=== PATIENT | female | born 1965 | race Caucasian/White ===

== ENCOUNTER → 2017-02-15 | Outpatient (CLI) | payer BC ==
[~2017-02-15] MED LIST: ASCA500 PO; ASPCH81 PO; TMXUNK
[2017-02-15 14:30] LABS: ALT/SGPT 26 U/L (12-78); BLOOD UREA NITROGEN 16 mg/dl (7-18); CALCIUM 8.8 mg/dl (8.5-10.1); CARBON DIOXIDE 29 mmol/L (21-32); CHLORIDE 106 mmol/L (98-107); CHOLESTEROL 259 mg/dl (0-200); CREATININE 0.86 mg/dl (0.60-1.20); GLUCOSE 90 mg/dl (70-99); POTASSIUM 4.5 mmol/L (3.5-5.1); SODIUM 142 mmol/L (136-145); TRIGLYCERIDES 190 mg/dl (0-150); VERY LOW DENSITY LIPOPROT CALC 38 mg/dl
[2017-02-15 14:32] LABS: BASO % 0.2 %; BASO ABS # 0.01 K/uL (0-0.2); COMPLETE YES; EOS % 1.9 %; HEMATOCRIT 40.4 % (37-47); IG% 0.2 %; LYMPH ABS # 1.47 K/uL (1.2-3.4); MEAN CELL VOLUME 87.4 fL (80-100); MEAN CORPUSCULAR HEMOGLOBIN 29.7 pg (25-34); MEAN CORPUSCULAR HGB CONC 33.9 g/dl (32-36); MEAN PLATELET VOLUME 11.4 fL (7.4-10.4); MONO % 8.6 %; NEUT % 61.1 %; PLATELET COUNT 212 K/uL (130-400); RED BLOOD COUNT 4.62 M/uL (4.2-5.4); WHITE BLOOD COUNT 5.25 K/uL (4.8-10.8)
[2017-02-15 14:38] LABS: ALB/GLOB RATIO 1.1 (0.9-2); ALKALINE PHOSPHATASE 85 U/L (45-117); AST/SGOT 14 U/L (15-37); CHOLESTEROL/HDL RATIO 4.3; HDL CHOLESTEROL 60 mg/dl; LDL CHOLESTEROL CALCULATED 161 mg/dl
--- NOTE | 2017-02-25 14:32 | CODING QUERY MEDICAL NECESSITY ---
SUPPORTING DIAGNOSIS NEEDED A supporting diagnosis is required for the test/procedure performed on this patient in order for us to be reimbursed by the patient's insurance. Please provide a supporting diagnosis for the following test/procedure listed below next to the test name along with your signature. *If there is no additional diagnosis for this patient that would support the following test/procedure please document that below next to the test/procedure. Test(s)/Procedure(s) that require a supporting diagnosis: * VITAMIN D, 25-HYDROXY DIAGNOSIS: Provider Signature: Date: Thank you Keila Franks [facility] [employer] Once completed, please kindly fax back to [phone] For questions please call [phone]
== END | disposition home or self-care (01) ==
LOC: C.LABSPEC 13:54
PROVIDERS: ATTEND Family Medicine
DX: R53.83 Other fatigue (principal); E04.1 Nontoxic single thyroid nodule; Z13.1 Encounter for screening for diabetes mellitus; Z13.220 Encounter for screening for lipoid disorders

== ENCOUNTER → 2017-02-15 | Outpatient (CLI) | payer BC | END | disposition home or self-care (01) | LOC: C.PAPS 15:10 | PROVIDERS: ATTEND Family Medicine | DX: Z01.419 Encounter for gynecological examination (general) (routine) without abnormal findings (principal) ==

== ENCOUNTER → 2017-02-16 | Outpatient (CLI) | payer BC ==
--- NOTE | 2017-02-16 15:15 | DIAGNOSTIC IMAGING REPORT ---
SOFT TISS HEAD/NECK-THYROID CLINICAL HISTORY: 51 years-old Female presenting with NONTOXIC SIGLE THYROID NODULE. TECHNIQUE: Real-time grayscale and color and spectral Doppler ultrasound imaging of the thyroid and base of the neck was performed. COMPARISON: None. FINDINGS: Right lobe: Normal echogenicity and echotexture. The right lobe of the thyroid measures 5.8 x 1.8 x 1.7 cm. No nodules. No parenchymal hyperemia. Left lobe: Normal echogenicity and echotexture. The left lobe of the thyroid measures 5.1 x 1.6 x 1.7 cm. No nodules. No parenchymal hyperemia. Isthmus: The isthmus measures 4 mm in thickness. No nodules. IMPRESSION: Normal thyroid ultrasound. Electronically signed by: Rajendra Moulton M.D. 02/16/2017 3:14 PM Dictated Date/Time: 02/16/2017 3:13 PM
== END | disposition home or self-care (01) ==
LOC: C.ULTRBC 14:50
PROVIDERS: ATTEND Family Medicine
DX: E04.1 Nontoxic single thyroid nodule (principal)

== ENCOUNTER → 2017-06-03 | Day surgery (SDC) | payer BC ==
[2017-05-12 07:49] VITALS: Ht 168.9 cm; Wt 90.9 kg
--- NOTE | 2017-05-31 12:02 | HISTORY & PHYSICAL EXAMINATION ---
DATE OF ADMISSION: 06/03/2017 CHIEF COMPLAINT: Postmenopausal bleeding, abnormal transvaginal ultrasound on tamoxifen. HISTORY OF PRESENT ILLNESS: The patient is a 51-year-old 1, para 1. 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 She has had about two periods in the last 4 months. Transvaginal ultrasound on 03/23/2017 revealed a small fibroid and a thickened endometrium at 0.4 cm, presently being scheduled for an outpatient D&C. PAST MEDICAL HISTORY: She has had a boy 15 years old in good health. She had no known drug allergies. PAST SURGICAL HISTORY: She has had eye surgery as a child and she has had several lumpectomies with diagnosis of breast cancer. SOCIAL HISTORY: No smoking. No alcohol intake. Works outside home with a [employer]. FAMILY HISTORY: Mom at age 52 of colon cancer. Father is 86, has diabetes, high blood pressure, is in fairly good health. She has a brother at age 58. He had a tumor removed from his jaw and had to do a reconstructive surgery and he has elevated blood pressure. REVIEW OF SYSTEMS: HEAD: No symptoms of frequent or severe headaches. EYES: No symptoms of blurred vision or double vision. EARS: No symptoms of frequent ear infections or difficulty hearing. NOSE: No symptoms of frequent nosebleeds or difficulty breathing through her nose. THROAT: No symptoms of frequent or severe sore throats, difficulty swallowing. RESPIRATORY SYSTEM: No history of asthma, chest pain, or shortness of breath. PHYSICAL EXAMINATION: GENERAL: A well-developed, well-nourished 51-year-old white female, alert, oriented x3 and cooperative in no acute distress, appears stated age. EYES: Conjunctivae are pink, sclerae white, no evidence of jaundice. EARS: Had normal light reflex bilaterally. HEART: Regular rhythm. S1 and S2 are normal. BREASTS: Normal. ABDOMEN: Soft and nontender. LUNGS: Clear. PELVIC: Revealed a normal-appearing cervix. Uterus was top normal size. There were no adnexal masses appreciated. MUSCULOSKELETAL: Revealed no calf tenderness. IMPRESSIONS OF THIS CASE: Bilateral breast cancer on tamoxifen and postmenopausal bleeding, abnormal transvaginal ultrasound.
[2017-05-31 13:05] LABS: BASO % 0.3 %; BASO ABS # 0.02 K/uL (0-0.2); COMPLETE YES; EOS % 1.5 %; HEMATOCRIT 42.1 % (37-47); LYMPH % 32.6 %; MEAN CELL VOLUME 88.8 fL (80-100); MEAN CORPUSCULAR HGB CONC 33.7 g/dl (32-36); MEAN PLATELET VOLUME 11.4 fL (7.4-10.4); MONO % 6.4 %; NEUT % 59.2 %; PLATELET COUNT 221 K/uL (130-400); RED BLOOD COUNT 4.74 M/uL (4.2-5.4); WHITE BLOOD COUNT 5.82 K/uL (4.8-10.8)
[2017-05-31 13:33] LABS: PREG INTERNAL NEGATIVE QC NEG CLEAR BACKGROUND; PREG INTERNAL POSITIVE QC POS CONTROL LINE
[~2017-06-03] VITALS: Ht 168.9 cm; Wt 90.9 kg
[~2017-06-03] MED LIST changes: -ASCA500 PO; -ASPCH81 PO; +ATROPINE SULFATE 0.1 MG/ML 5ML SYR IV PRN; +DEXAMETHASONE SOD INJ 4 MG/ML VIAL ONE; +ERGO500037 PO; +EpHEDrine SULFATE INJ 50 MG/ML AMP IV PRN; +FENTANYL CITRATE INJ 50 MCG/1 ML 2 ML VIAL IV PRN; +FENTANYL CITRATE INJ 50 MCG/1 ML 2 ML VIAL ONE; +FLUT0.15 NAE; +GLYCOPYRROLATE INJ 0.2 MG/ML VIAL ONE; +HYDROCODONE/ACETAMOPHEN 5/325MG TAB PO PRN; +IBUP-1050 PO; +IBUPROFEN 600 MG TAB PO PRN; +KETOROLAC TROMETHAMINE 30 MG/ML VIAL IV. PRN; +KETOROLAC TROMETHAMINE 30 MG/ML VIAL ONE; +LACTATED RINGER'S 1000ML 1,000 ML IV SCH; +LIDOCAINE HCL 2% 2 ML VIAL (20MG/ML) ONE; +MIDAZOLAM HCL 1 MG/ML 2ML VIAL ONE; +MULT-506 PO; +NEOSTIGMINE METHYLSULFATE 5 MG/5 ML SYR ONE; +ONDANSETRON INJ 2 MG/ML 2 ML VIAL IV PRN; +ONDANSETRON INJ 2 MG/ML 2 ML VIAL ONE; +OXYCODONE/ACETAMINOPHEN 5-325 TAB PO PRN; +PROPOFOL IV EMULSION 10 MG/ML 20 ML VIAL IV ONE; +SODIUM CHLORIDE 0.9% 1000ML 1,000 ML IV SCH; -TMXUNK
--- NOTE | 2017-06-03 08:01 | History & Physical Bridge Note ---
H&P Re-Evaluation Bridge Note: I have examined the patient, reviewed the History & Physical and in the interval since the performance of the History & Physical I have noted the following changes of clinical significance: No changes noted
--- NOTE | 2017-06-03 08:33 | [facility] Post Operative Brief Note ---
Immediate Operative Summary Operative Date Jun 03, 2017. Pre-Operative Diagnosis Post menopausal bleeding Post-Operative Diagnosis Same Procedure(s) Performed Dilitation and Currettage Surgeon Dr. Leon Knotting Machine Operator Surgeon(s) None Estimated Blood Loss 10 cc Findings uterus sounded to 8.5 cm Specimens A. Uterine Currettings Complication(s) None Disposition Recovery Room / PACU
--- NOTE | 2017-06-03 08:35 | Discharge Instructions-SurgCtr ---
Discharge Instructions Date of Service Jun 03, 2017. Visit Reason for Visit: Post Menopausal Bleeding;Pre-Op N95.0, D25.9 Discharge Discharge Diagnosis / Problem: heavy vaginal bleeding Discharge Goals Goal(s): Learn about illness, Therapeutic intervention Activity Recommendations Activity Limitations: as noted below ACTIVITY RECOMMENDATIONS: * Avoid tampons, douching, hot tubs, pools, and intercourse until bleeding has stopped. * May shower as usual. * No strenuous activity for 24-48 hours. After 24-48 hours, you may do anything you feel like doing (driving and sports are okay). SPECIAL CARE INSTRUCTIONS: Special Diet: * Mild nausea may occur in the immediate post-operative period. * Take clear liquids such as tea, cola or bouillon until all nausea has subsided; you may then resume your normal diet. Special Care: * Light bleeding and vaginal spotting can last from a few days to 3-4 weeks. Call your doctor if bleeding becomes heavier than the heaviest part of your period. * Check your temperature twice a day for one week. If it goes above 100.4 degrees Fahrenheit (38.0 Celsius), notify your doctor. * Call your doctor's office for an appointment for 6 weeks after your surgery. FOLLOW-UP VISIT: Call your doctor's office for an appointment for 6 weeks after your surgery. Anesthesia . Post Anesthesia Instructions: If you have had General Anesthesia or IV Sedation: * Do not drive today. * Resume driving when surgeon permits. * Do not make important decisions or sign legal documents today. * Call surgeon for: 1. Temperature elevations greater than 101 degrees F. 2. Uncontrollable pain. 3. Excessive bleeding. 4. Persistent nausea and vomiting. 5. Medication intolerance (nausea, vomiting or rash). * For nausea and vomiting use only clear liquids such as: tea, soda, bouillon until nausea subsides, then gradually increase diet as tolerated. * If you have any concerns or questions, call your surgeon's office. If physician is unavailable and it is an emergency, call 911 or go to the nearest emergency room. . Instructions / Follow-Up Instructions / Follow-Up ACTIVITY RECOMMENDATIONS: * Avoid tampons, douching, hot tubs, pools, and intercourse until bleeding has stopped. * May shower as usual. * No strenuous activity for 24-48 hours. After 24-48 hours, you may do anything you feel like doing (driving and sports are okay). SPECIAL CARE INSTRUCTIONS: Special Diet: * Mild nausea may occur in the immediate post-operative period. * Take clear liquids such as tea, cola or bouillon until all nausea has subsided; you may then resume your normal diet. Special Care: * Light bleeding and vaginal spotting can last from a few days to 3-4 weeks. Call your doctor if bleeding becomes heavier than the heaviest part of your period. * Check your temperature twice a day for one week. If it goes above 100.4 degrees Fahrenheit (38.0 Celsius), notify your doctor. * Call your doctor's office for an appointment for 6 weeks after your surgery. FOLLOW-UP VISIT: Call your doctor's office for an appointment for 6 weeks after your surgery. Diet Recommendations Home Diet: resume previous diet Procedures Procedures Performed: Dilitation and Currettage Pending Studies Studies pending at discharge: no Medical Emergencies . Who to Call and When: Medical Emergencies: If at any time you feel your situation is an emergency, please call 911 immediately. . Non-Emergent Contact Non-Emergency issues call your: Senior Estimator Call Non-Emergent contact if: temperature is above 100.5 . . "Provider Documentation" section prepared by Collin Leon. .
--- NOTE | 2017-06-03 08:46 | OPERATIVE REPORT ---
DATE OF OPERATION: 06/03/2017 PROCEDURE: D&C. INDICATIONS FOR SURGERY: Episodes of heavy vaginal bleeding and abnormal transvaginal ultrasound. PREOPERATIVE DIAGNOSES: History of tamoxifen use, abnormal transvaginal ultrasound, and heavy vaginal bleeding. POSTOPERATIVE DIAGNOSES: Same. Uterus sounded to 8 cm. SURGEON: Dr. Leon. ESTIMATED BLOOD LOSS: 10 mL. ANESTHESIA: General. OPERATIVE FINDINGS AND PROCEDURE: The patient was brought to the OR table and correctly identified by armband and conversation. General anesthesia was administered. Perineum and vagina were painted with Betadine paint and draped in the usual sterile fashion. Careful pelvic exam under anesthesia revealed a normal size anteverted uterus. There were no adnexal masses appreciated. Weighted speculum was placed in the posterior vagina. Anterior lip of the cervix grasped with single tooth tenaculum. Uterus sounded to 8 cm. Cervix was dilated with graduated dilators. A small serrated curet was placed in the uterine cavity. All 4 quadrants of the uterus were thoroughly and systematically cureted. This was productive of a small amount of tissue. Following this, an Ovum forceps was inserted in uterine cavity, opened and closed several times and this was productive of additional few fragments of tissue. Following this, hemostasis was good. There was some bleeding from this tenaculum site, which was controlled by using ring forceps and pressure. The patient tolerated the procedure well and left the OR in good condition. I attest to the content of the Intraoperative Record and any orders documented therein. Any exception s are noted below.
--- NOTE | 2017-06-03 09:25 | Anesthesia Progress Nt - [facility] ---
Anesthesia Post Op Note Date & Time Jun 03, 2017 at 09:25 Vital Signs Pain Intensity: 0 Vital Signs Past 12 Hours Date Time Temp Pulse Resp B/P (MAP) Pulse Ox O2 Delivery O2 Flow Rate FiO2 06/03/17 09:20 62 17 06/03/17 09:20 62 17 119/83 97 06/03/17 09:16 36.6 67 20 119/83 97 Room Air 06/03/17 09:15 66 19 06/03/17 09:15 65 19 111/79 96 06/03/17 09:10 67 12 06/03/17 09:10 67 12 117/76 95 06/03/17 09:05 71 13 06/03/17 09:05 70 13 131/79 95 06/03/17 09:00 79 14 118/73 95 06/03/17 09:00 80 14 06/03/17 08:55 74 15 119/76 97 06/03/17 08:55 74 15 06/03/17 08:50 77 19 06/03/17 08:50 78 19 127/80 99 06/03/17 08:45 75 13 126/78 99 06/03/17 08:45 74 13 06/03/17 08:40 91 20 06/03/17 08:40 91 20 132/80 99 06/03/17 08:36 117/71 06/03/17 08:35 71 98 06/03/17 08:35 71 06/03/17 08:35 36.7 68 16 117/71 98 Mask 6 06/03/17 07:34 36.8 81 16 125/80 (95) 95 Room Air Notes Mental Status: alert / awake / arousable, participated in evaluation Pt Amnestic to Procedure: Yes Nausea / Vomiting: adequately controlled Pain: adequately controlled Airway Patency, RR, SpO2: stable & adequate BP & HR: stable & adequate Hydration State: stable & adequate Anesthetic Complications: no major complications apparent
[2017-06-03 09:34] VITALS: TEMP 36.2
[2017-06-03 09:50] VITALS: BP 117/82; PULSE 66; O2SAT 100
== END | disposition home or self-care (01) ==
LOC: X.SURG 07:17
PROVIDERS: ATTEND Obstetrics & Gynecology
DX: N95.0 Postmenopausal bleeding (principal); D25.9 Leiomyoma of uterus, unspecified; C50.911 Malignant neoplasm of unspecified site of right female breast; C50.912 Malignant neoplasm of unspecified site of left female breast; Z80.0 Family history of malignant neoplasm of digestive organs; Z83.3 Family history of diabetes mellitus